=== PATIENT | female | born 2000 | race Two or more races ===

== ENCOUNTER 2022-08-04 11:44 | Emergency (ER) | payer MEDICAID ==
[2022-08-04 12:09] VITALS: BP 136/64
[2022-08-04 12:51] LABS: Urine Bacteria NONE SEEN /hpf (None Seen); Urine Blood Negative /uL (Negative); Urine Sperm PRESENT /hpf (None Seen); Urine WBC 8 /hpf (0 - 5)
[2022-08-04] MEDS ORDERED: ONDA-144 PO (14:35)
== END 2022-08-04 14:55 | disposition home or self-care (01) ==
LOC: ER 11:44
DX: R42 Dizziness and giddiness (principal)
CPT/HCPCS: 81001